=== PATIENT | male | born 1935 | race Caucasian/White ===

== ENCOUNTER 2016-08-27 12:01 | Emergency (ER) | payer OTHER ==
[2016-08-27 12:30] LABS: MANUAL DIFF NEEDED? NO
[2016-08-27] MEDS ORDERED: ZOFRAN ONE (12:31)
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
[2016-08-27 12:47] LABS: ALBUMIN 3.5 g/dL (3.5-5.0); CALCIUM 8.3 mg/dL (8.8-10.2); POTASSIUM 3.5 mmol/L (3.5-5.1); TOTAL BILIRUBIN 0.58 mg/dL (0.20-1.00); TOTAL PROTEIN 6.2 g/dL (6.3-8.3)
[2016-08-27 12:54] LABS: BASO% 0.3 % (0.0-0.8); EOS# 0.25 X1000 (0.0-0.7); EOS% 1.8 % (0.0-10.0); HEMATOCRIT 31.9 % (42.0-52.0); HEMOGLOBIN 10.3 g/dL (14.0-18.0); IMM GRAN# 0.14 X1000 (0.0-0.04); LYMPH# 2.65 X1000 (1.2-3.4); LYMPH% 19.2 % (20.5-51.1); MCH 26.6 PG (27-31); MCHC 32.3 g/dL (33-37); MCV 82.4 FL (81-99); MONO# 1.17 X1000 (0.11-0.59); MONO% 8.5 % (1.7-9.3); MPV 10.7 FL (7.4-10.4); NEUT% 69.2 % (42.2-75.2); PLT 188 X1000 (130-400); RBC 3.87 XMIL (4.7-6.1)
[2016-08-27 12:57] LABS: URINE MICRO REVIEW NEEDED? NO; URINE SOURCE CATH
[2016-08-27 13:03] LABS: BILIRUBIN URINE NEGATIVE (NEGATIVE); BLOOD URINE NEGATIVE (NEGATIVE); COLOR YELLOW; GLUCOSE URINE NEGATIVE (NEGATIVE); LEUKOCYTES URINE MODERATE (NEGATIVE); NITRITE URINE NEGATIVE (NEGATIVE); PROTEIN URINE NEGATIVE (NEGATIVE); SP GRAVITY URINE 1.015; TURBIDITY URINE HAZY (CLEAR); UROBILINOGEN URINE 2 mg/dL (NORMAL)
[2016-08-27 13:05] LABS: UR EPITHELIAL CELLS <10 /HPF (<10); URINE BACTERIA 4+ /HPF; URINE CULTURE NEEDED? YES; URINE RBC <10 /HPF (<10); URINE WBC TNTC /HPF (<10)
[2016-08-27 13:09] LABS: INR 1.04
[2016-08-27 13:14] LABS: UR AMPHETAMINES QUAL NONE DETECTED (NONE DETECT); UR BARBITUATES QUAL NONE DETECTED (NONE DETECT); UR BENZODIAZEPIN QUAL NONE DETECTED (NONE DETECT); UR CANNABINOIDS QUAL NONE DETECTED (NONE DETECT); UR COCAINE QUAL NONE DETECTED (NONE DETECT); UR METHADONE QUAL NONE DETECTED (NONE DETECT); UR OPIATES QUAL NONE DETECTED (NONE DETECT); UR OXYCODONE QUAL NONE DETECTED (NONE DETECT); UR PCP QUAL NONE DETECTED (NONE DETECT)
--- NOTE | 2016-08-27 13:14 | Diag Imaging Result Document ---
PROCEDURE NAME: CHEST-PORTABLE - 08/27/2016 SINGLE FRONTAL RADIOGRAPH OF THE CHEST: COMPARISON: 08/27/2016. FINDINGS: There is no evidence of pneumothorax by plain radiograph. There is suggestion of mild atelectasis versus scarring at the right lung base. The lungs are clear otherwise. No definite pleural fluid collection is identified. No new consolidation is identified. Cardiac silhouette is prominent but stable. IMPRESSION: Suggestion of mild right basilar atelectasis versus scarring that is stable. No pneumothorax identified.
[2016-08-27 13:20] VITALS: BP 105/82
--- NOTE | 2016-08-27 15:40 | Diag Imaging Result Document ---
PROCEDURE NAME: CHEST-PORTABLE - 08/27/2016 SINGLE FRONTAL RADIOGRAPH OF THE CHEST: COMPARISON: None available. FINDINGS: The patient is significantly rotated toward the right. There is suggestion of mild subsegmental atelectasis versus scarring at the right lung base. The lungs are grossly clear, otherwise. There are a couple calcified granulomata in the right mid and upper lung zone. Cardiac silhouette is somewhat prominent, at least in part, due to magnification from AP technique. There is a left-sided pacemaker in the expected position. IMPRESSION: Suggestion of minimal right basilar atelectasis and/or scarring and perhaps mild cardiomegaly. No definite acute pathology, otherwise.
--- NOTE | 2016-08-27 16:41 | Diag Imaging Result Document ---
PROCEDURE NAME: PELVIS - 08/27/2016 SINGLE FRONTAL RADIOGRAPH OF THE PELVIS: COMPARISON: None available. FINDINGS: Note that there is a metallic saw blade that is projecting over the lower pelvis on the right and a tiny metallic nail projecting over the lower pelvis soft tissues on the left. These items were in the patient's pockets and are not embedded in the soft tissues. There are degenerative changes involving the lower lumbar spine and at the hips. There is no definite fracture, dislocation, or intrinsic osseous lesion, otherwise. IMPRESSION: Degenerative changes as described. No definite acute osseous abnormality.
--- NOTE | 2016-08-28 05:52 | EKG Report ---
Test Performed on : 08/27/2016 12:09:26 PM Test Reason : No order in [employer] Blood Pressure : / mmHG Vent. Rate : 076 BPM Atrial Rate : 080 BPM P-R Int : 170 ms QRS Dur : 180 ms QT Int : 510 ms P-R-T Axes : 000 -80 088 degrees QTc Int : 573 ms Poor data quality, interpretation may be adversely affected Atrial-paced rhythm Left axis deviation Left bundle branch block Abnormal ECG No previous ECGs available Unconfirmed Result
[2016-08-28] MEDS ORDERED: NS 2,000 ML ONE (13:12)
== END 2016-08-27 12:40 | disposition short-term general hospital (02) ==
LOC: EDBD → ED 12:01
DX: S01.81XA Laceration without foreign body of other part of head, initial encounter (principal); S01.312A Laceration without foreign body of left ear, initial encounter; S20.211A Contusion of right front wall of thorax, initial encounter; H92.02 Otalgia, left ear; V53.5XXA Driver of pick-up truck or van injured in collision with car, pick-up truck or van in traffic accident, initial encounter; R00.0 Tachycardia, unspecified; M25.512 Pain in left shoulder; I95.9 Hypotension, unspecified; R51 Headache; R07.9 Chest pain, unspecified; E66.9 Obesity, unspecified; R94.31 Abnormal electrocardiogram [ECG] [EKG]; Z95.0 Presence of cardiac pacemaker
CPT/HCPCS: 36430; 51702; 71010; 72170; 80053; 81001; 82550; 85025; 85610; 86850; 86900; 86901; 86920; 87077; 87088; 93005; G0480; J2405; P9016; 80320; 80324; 80345; 80346; 80349; 80353; 80358; 80361; 80365; 83992; 99285-25